=== PATIENT | male | born 1980 | race African-American/Black ===

== ENCOUNTER 2018-03-21 21:42 | Emergency (ER) | payer BC ==
[2018-03-21 21:59] VITALS: BP 148/65
[2018-03-21] MEDS ORDERED: NAPROXEN 250 MG TABLET PO ONE (22:12)
--- NOTE | 2018-03-21 22:14 | RADIOLOGY REPORT (SQ) ---
EXAM DESCRIPTION: ANKLE LEFT COMPLETE COMPLETED DATE/TIME: 03/21/2018 10:03 pm REASON FOR STUDY: Pain s/p injury 1 wk ago/ hit against something COMPARISON: None. NUMBER OF VIEWS: Three views. TECHNIQUE: AP, lateral, and oblique radiographic images acquired of the left ankle. LIMITATIONS: None. FINDINGS: MINERALIZATION: Normal. BONES: No acute fracture or dislocation. No worrisome bone lesions. JOINTS: No effusions. SOFT TISSUES: No soft tissue swelling. No foreign body. OTHER: No other significant finding. IMPRESSION: NEGATIVE STUDY OF THE LEFT ANKLE. NO RADIOGRAPHIC EVIDENCE OF ACUTE INJURY. TECHNICAL DOCUMENTATION: JOB ID: [id number] [employer]- All Rights Reserved Reading location - IP/workstation name: [email or web address]
--- NOTE | 2018-03-21 22:15 | ER Document Report ---
ED General - General Chief Complaint: Ankle Injury Stated Complaint: ANKLE PAIN Time Seen by Provider: 03/21/18 22:01 TRAVEL OUTSIDE OF THE [place] IN LAST 30 DAYS: No - HPI Notes: 37-year-old male presents with right ankle pain. Approximately 1 week ago the patient hit his right lateral ankle on something and now has complained of pain since then. Sharp and aching and throbbing, worse with weightbearing. Nonradiating. Gradual onset. No other modifying factors, no other associated symptoms, no other provocative or palliative factors. Past Medical History - Social History Smoking Status: Smoker,Current Status Unk Family History: Reviewed & Not Pertinent - Medical History Medical History: Negative Review of Systems - Review of Systems Notes: Review of systems as in history of present illness, otherwise no significant headache, chest pain, abdominal pain. Physical Exam - Vital signs Vitals: Temp Pulse Resp BP Pulse Ox 98.8 F 61 18 148/65 H 97 03/21/18 21:54 03/21/18 21:54 03/21/18 21:54 03/21/18 21:54 03/21/18 21:54 - Notes Notes: General: Well devloped, no acute distress. HEENT: Normocephalic, atraumatic. Pupils equal round reactive to light. Mucosa moist. No JVD. Chest: No trauma, normal excursion. Respiratory: Good air exchange, normal excursion. Cardiac: Regular rhythm Abdomen: Soft, benign. Nondistended. Back: No asymmetry or gross abnormality. Motor: Grossly normal power and tone. Neurologic: Alert, nonfocal. Vascular: Well perfused Skin: No petechiae or purpura Remedies: Right lateral malleolar tenderness with no appreciable swelling or crepitus. Normal neurovascular exam. Course - Re-evaluation Re-evalutation: 03/21/18 22:14 Appearing male with contusion/sprain versus fracture. Plain films are obtained , no evidence of fracture. Given naproxen, prescription for the same, work note , Jimmie wrap. - Vital Signs Vital signs: Temp Pulse Resp BP Pulse Ox 98.8 F 61 18 148/65 H 97 03/21/18 21:54 03/21/18 21:54 03/21/18 21:54 03/21/18 21:54 03/21/18 21:54 Discharge - Discharge Clinical Impression: Ankle sprain Qualifiers: Encounter type: initial encounter Involved ligament of ankle: unspecified ligament Laterality: right Qualified Code(s): S93.401A - Sprain of unspecified ligament of right ankle, initial encounter Condition: Good Disposition: HOME, SELF-CARE Instructions: Jimmie Wrap ([facility]), Sprained Ankle ([facility]) Prescriptions: Naproxen 500 mg PO Q12 PRN #12 tablet PRN Reason:
== END 2018-03-21 22:40 | disposition home or self-care (01) ==
LOC: ER 21:42
DX: S93.401A Sprain of unspecified ligament of right ankle, initial encounter (principal); M25.571 Pain in right ankle and joints of right foot; X58.XXXA Exposure to other specified factors, initial encounter
CPT/HCPCS: 99283

== ENCOUNTER 2018-09-13 16:47 | Emergency (ER) | payer BC ==
[2018-09-13 16:53] VITALS: BP 139/66
[2018-09-13] MEDS ORDERED: HYDROCODONE/ACETAMINOPHEN 5-325 MG TABLET PO ONE (18:27)
[2018-09-13] MEDS ORDERED: PENICILLIN V POTASSIUM 500 MG TABLET PO ONE (18:27)
--- NOTE | 2018-09-13 18:31 | ER Document Report ---
HPI - HPI Time Seen by Provider: 09/13/18 17:57 Pain Level: 2 Notes: Patient is an otherwise healthy 38-year-old male who presents to the emergency department with chief complaint of dental pain. Patient reports that he was told many years ago that he would need to have his wisdom teeth removed. He states that the pain has been getting severe over the last few days. He reports taking naproxen with minimal relief. - CONSTITUTIONAL Constitutional: DENIES: Fever, Chills - EENT EENT: DENIES: Sore Throat, Ear Pain, Eye problems - NEURO Neurology: DENIES: Headache, Weakness, Vision blurred, Dizzinesss / Vertigo - CARDIOVASCULAR Cardiovascular: DENIES: Chest pain - RESPIRATORY Respiratory: DENIES: Trouble Breathing, Coughing - GASTROINTESTINAL Gastrointestinal: DENIES: Abdominal Pain, Black / Bloody Stools - URINARY Urinary: DENIES: Dysuria, Urgency, Frequency - MUSCULOSKELETAL Musculoskeletal: DENIES: Extremity pain Past Medical History - Social History Smoking Status: Unknown if Ever Smoked Family History: Reviewed & Not Pertinent Patient has suicidal ideation: No Patient has homicidal ideation: No Renal/ Medical History: Denies: Hx Peritoneal Dialysis Vertical Provider Document - CONSTITUTIONAL Notes: PHYSICAL EXAMINATION: GENERAL: Well-appearing, well-nourished and in no acute distress. HEAD: Atraumatic, normocephalic. EYES: Pupils equal round extraocular movements intact, conjunctiva are normal. ENT: Nares patent, erythema around tooth #17, no interval abscess identified. NECK: Normal range of motion LUNGS: No respiratory distress Musculoskeletal: Normal range of motion NEUROLOGICAL: Normal speech, normal gait. PSYCH: Normal mood, normal affect. SKIN: Warm, Dry, normal turgor, no rashes or lesions noted. - INFECTION CONTROL TRAVEL OUTSIDE OF THE [place] IN LAST 30 DAYS: No Course - Re-evaluation Re-evalutation: Patient's examination consistent with dental infection. No drainable abscess identified. Patient will be placed on penicillin and encouraged to follow-up with his dentist. - Vital Signs Vital signs: Temp Pulse Resp BP Pulse Ox 98.6 F 60 16 139/66 H 100 09/13/18 16:52 09/13/18 16:52 09/13/18 16:52 09/13/18 16:52 09/13/18 16:52 Discharge - Discharge Clinical Impression: Dental infection Condition: Stable Disposition: HOME, SELF-CARE Additional Instructions: TOOTHACHE: Your pain is due to dental decay. The tooth must be repaired in order for you to feel better. You will, therefore, be referred to a dentist. We do not have dentists on the staff at [facility]. Severe swelling or drainage around a tooth usually means a dental abscess. This also requires evaluation and treatment by the dentist, but antibiotics may be prescribed while awaiting dental treatment. You should be rechecked immediately if you develop major swelling of the face, increasing pain, a lump in the jaw or gums, headache, difficulty swallowing, or fever. PENICILLIN V K: You have been given a prescription for Penicillin VK. Your physician has determined that this is the best antibiotic for your condition. Pen VK can be taken with meals, however more of the antibiotic gets into the bloodstream if it's taken on an empty stomach. Penicillin usually has no side effects. However, allergy to penicillins is common. If you have had an allergic reaction to any drug of the penicillin family, you should never take any other penicillin. Notify your doctor at once if you develop hives, itching, swelling, faintness, or shortness of breath. FOLLOW-UP CARE: You have been referred for follow-up care to the dentists listed below. Call the dentists office for an appointment as you were instructed or within the next two days. If you experience worsening or a significant change in your symptoms, notify the physician immediately or return to the Emergency Department at any time for re-evaluation. Please take the antibiotic as prescribed, take ibuprofen 600 mg every 6 hours. Please follow-up with your dentist, call them tomorrow to get an appointment scheduled. Prescriptions: Penicillin V Potassium [Penicillin Vk 500 mg Tablet] 500 mg PO BID #20 tablet Forms: Return to Work
== END 2018-09-13 19:09 | disposition home or self-care (01) ==
LOC: ER 16:47
DX: K04.7 Periapical abscess without sinus (principal); K08.89 Other specified disorders of teeth and supporting structures
CPT/HCPCS: 99282